=== PATIENT | female | born 1960 | race Caucasian/White ===

== ENCOUNTER 2017-08-23 03:03 | Emergency (ER) | payer OTHER ==
[~2017-08-23] VITALS: Ht 167.6 cm; Wt 90.9 kg
[2017-08-23] MEDS ORDERED: LISI10TA4 PO (03:19)
[2017-08-23] MEDS ORDERED: PERCOCET 5MG/325MG TAB PO ONE (04:30)
[2017-08-23] MEDS ORDERED: PERC5TAB12 PO (05:48)
[2017-08-23] MEDS ORDERED: OXYCODONE/APAP 5MG/325MG(BULK FOR ED) 1 TABLET PO ONE (06:00)
[2017-08-23 06:01] VITALS: BP 149/90
--- NOTE | 2017-08-23 06:08 | REP ---
Clinical: Trauma. Technique: Frontal view of the chest with multiple views of the left hemithorax. Findings: Frontal view of the chest suggests mild basilar atelectasis. No pneumothorax. Multiple views of the left hemithorax demonstrates no obvious acute rib fracture or pathology. Impression: Mild basilar atelectasis. No pneumothorax. No left rib fracture identified. Signed by Estevan Munoz MD 08/23/2017 05:59 A
== END 2017-08-23 06:03 | disposition home or self-care (01) ==
LOC: M ED 03:03
DX: S20.222A Contusion of left back wall of thorax, initial encounter (principal); W01.0XXA Fall on same level from slipping, tripping and stumbling without subsequent striking against object, initial encounter; Y92.018 Other place in single-family (private) house as the place of occurrence of the external cause; Y93.89 Activity, other specified; Y99.8 Other external cause status; Z79.899 Other long term (current) drug therapy; Z88.5 Allergy status to narcotic agent; Z88.8 Allergy status to other drugs, medicaments and biological substances; L23.1 Allergic contact dermatitis due to adhesives